=== PATIENT | female | born 1945 | race Two or more races ===

== ENCOUNTER 2021-07-09 08:00 | Outpatient (CLI) | payer OTHER | END 2021-07-09 08:30 | disposition home or self-care (01) | LOC: PPH VACUNA 08:00 | PROVIDERS: ATTEND Emergency Medicine Pediatric Emergency Medicine | DX: Z23 Encounter for immunization (principal) ==

== ENCOUNTER 2022-03-11 08:40 | Outpatient (CLI) | payer OTHER | END 2022-03-11 08:50 | disposition home or self-care (01) | LOC: PPH VACUNA 08:40 | PROVIDERS: ATTEND Emergency Medicine Pediatric Emergency Medicine | DX: Z23 Encounter for immunization (principal) ==

== ENCOUNTER 2022-10-29 08:45 | Emergency (ER) | payer OTHER ==
[~2022-10-29] VITALS: Ht 152.4 cm; Wt 70.3 kg
[2022-10-29] MEDS ORDERED: METFORMIN HCL1000 M2 PO (09:01)
[2022-10-29] MEDS ORDERED: KAPSPARGO SPRIN25 MG PO (09:01)
[2022-10-29] MEDS ORDERED: PLAVIX75 MG PO (09:01)
[2022-10-29] MEDS ORDERED: AMLODIPINE-OLM1 EAC2 PO (09:02)
[2022-10-29] MEDS ORDERED: ISOSORBIDE MONO30 M2 PO (09:02)
[2022-10-29] MEDS ORDERED: LOSARTAN-HCTZ1 EAC2 PO (09:02)
[2022-10-29] MEDS ORDERED: LEVOTHYROXINE50 MC1 PO (09:03)
[2022-10-29] MEDS ORDERED: LEVSIN/SL0.125 MG PO (16:04)
[2022-10-29] MEDS ORDERED: CIPRO500 MG PO (16:04)
[2022-10-29] MEDS ORDERED: INTESTINEX680 M1 PO (16:04)
[2022-10-29] MEDS ORDERED: CELEBREX100 MG PO (16:04)
[2022-10-29] MEDS ORDERED: PEPCID AC20 MG PO (16:04)
[2022-10-29] MEDS ORDERED: METRONIDAZOLE500 MG PO (16:04)
== END 2022-10-29 17:59 ==
LOC: ER 08:45
DX: K57.92 Diverticulitis of intestine, part unspecified, without perforation or abscess without bleeding (principal); I10 Essential (primary) hypertension; E11.9 Type 2 diabetes mellitus without complications; E03.9 Hypothyroidism, unspecified; Z88.5 Allergy status to narcotic agent

== ENCOUNTER 2024-04-10 21:22 | Emergency (ER) | payer OTHER ==
[~2024-04-10] VITALS: Ht 152.4 cm; Wt 72.6 kg
[~2024-04-10 21:22] MED LIST: AMLODIPINE-OLM1 EAC2 PO; CELEBREX100 MG PO; CIPRO500 MG PO; INTESTINEX680 M1 PO; ISOSORBIDE MONO30 M2 PO; KAPSPARGO SPRIN25 MG PO; LEVOTHYROXINE50 MC1 PO; LEVSIN/SL0.125 MG PO; LOSARTAN-HCTZ1 EAC2 PO; METFORMIN HCL1000 M2 PO; METRONIDAZOLE500 MG PO; PEPCID AC20 MG PO; PLAVIX75 MG PO
[2024-04-10] MEDS ORDERED: NORFLEX100MG PO (22:17)
[2024-04-10] MEDS ORDERED: DICLOFENAC POTA50 MG PO (22:17)
== END 2024-04-10 22:55 ==
LOC: ER 21:23
DX: S51.012A Laceration without foreign body of left elbow, initial encounter (principal); W11.XXXA Fall on and from ladder, initial encounter; Y93.89 Activity, other specified; Y92.89 Other specified places as the place of occurrence of the external cause; Y99.8 Other external cause status; I10 Essential (primary) hypertension; E11.9 Type 2 diabetes mellitus without complications; Z79.84 Long term (current) use of oral hypoglycemic drugs; Z88.5 Allergy status to narcotic agent